=== PATIENT | female | born 1950 | race Caucasian/White ===

== ENCOUNTER → 2022-05-31 | Outpatient (CLI) | payer MEDICARE ==
--- NOTE | 2022-06-01 11:29 | MR ---
EXAMINATION TYPE: MR brain wo/w con DATE OF EXAM: 05/31/2022 COMPARISON: NONE HISTORY: 71-year-old female G24.5, blepharospasm, Right hemifacial spasms. TECHNIQUE: Multiplanar, multisequence images of the brain and brainstem were acquired before and aft er administration of 6.5 mL IV Gadavist. Diffusion weighted imaging is performed. FINDINGS: No evidence for acute infarction, hemorrhage, mass, mass effect, midline shift, herniation, effacemen t of basal cisterns, or extra-axial fluid collection. There is mild age-related cerebral cortical volume loss. No hydrocephalus. 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 Major intracranial flow voids are otherwise intact. T2/FLAIR weighted sequences show mild periventricular white white matter change There is a partially empty sella. Otherwise, midline structures demonstrate normal morphology. The c raniocervical junction is normal. Post contrast images demonstrate no evidence of pathologic enhancement. Dural venous sinuses are pat ent. The patient's globes appear slightly myopic. Slight leftward nasal septal deviation. Mucosal retentio n cyst measuring 1.6 cm along the floor of the left maxillary sinus. Trace mucosal thickening ethmoid air cells. Mastoid air cells are well pneumatized. IMPRESSION: 1. Mild age-related cerebral cortical volume loss and mild changes of chronic small vessel ischemic d isease. No acute intracranial abnormality seen. No enhancing lesions. 2. Some normal variant vascular anatomy including hypoplastic A1 segment right ALEJANDRA and persistent fet al origin right BIT TRIPOLER. 3. Slight leftward nasal septal deviation. Mild chronic ethmoid sinus disease. A 1.6 cm mucosal reten tion cyst along the floor the left maxillary sinus.
== END | disposition home or self-care (01) ==
LOC: RADMRIMAIN 11:44
PROVIDERS: ATTEND Ophthalmology
DX: I67.82 Cerebral ischemia (principal); J34.2 Deviated nasal septum; J32.2 Chronic ethmoidal sinusitis; J34.89 Other specified disorders of nose and nasal sinuses
CPT/HCPCS: 70553; A9585

== ENCOUNTER → 2022-10-23 | Outpatient (CLI) | payer MEDICARE ==
--- NOTE | 2022-10-23 15:47 | BD ---
EXAMINATION TYPE: Axial Bone Density DATE OF EXAM: 10/23/2022 CLINICAL HISTORY: 72 years old Female. ICD-10 CODE: Z78.0 ASYMPTOMATIC MENOPAUSAL STATE Height: 64.5 Weight: 141 FRAX RISK QUESTIONS: Family History (Parent hip fracture): no History of Fracture in Adulthood: no Secondary Osteoporosis: no Rheumatoid Arthritis: no RISK FACTORS HISTORY OF: Family History of Osteoporosis: yes, mother Active: yes Diet low in dairy products/other sources of calcium: no Postmenopausal woman: yes, age 51 Lost more than 2 inches in height since high school: no Frequent falls: no Poor Health: no MEDICATIONS: Additional Medications: no EXAM MEASUREMENTS: Bone mineral densitometry was performed using the [employer] System. Bone mineral density as measured about the Lumbar spine is: ----- L1-L4(G/cm2): 1.043 T Score Values are as follows: ----- L1: -1.7 ----- L2: -2.1 ----- L3: -1.0 ----- L4: 0.1 ----- L1-L4: -1.1 Z Score Values are as follows: ----- L1: 0.1 ----- L2: -0.3 ----- L3: 0.7 ----- L4: 1.9 ----- L1-L4: 0.6 Bone mineral density baseline Bone mineral density about the R hip (g/cm2): 0.679 Bone mineral density about the L hip (g/cm2): 0.666 T Score values are as follows: -----R Neck: -2.5 -----L Neck: -3.1 -----R Total: -2.6 -----L Total: -2.7 Z Score values are as follows: -----R Neck: -0.6 -----L Neck: -1.2 -----R Total: -0.9 -----L Total: -1.0 Bone mineral density baseline FRAX%s: The graph provided illustrates a 20.8% chance for a major osteoporotic fx and a 8.0% chance f or the hips probability for fx in 10 years time. IMPRESSION: Osteoporosis (T Score less than -2.5). There is increased fracture risk and therapy is usually indicated based on age. Re-Screen 1-2 years. NOTE: T-SCORE=SD OF THE YOUNG ADULT MEAN.
--- NOTE | 2022-10-25 08:14 | MM ---
Reason for Exam: Screening (asymptomatic). Last mammogram was performed 15 year(s) and 10 month(s) ago. Patient History: Menarche at age 11. First Full-Term at age 20. Postmenopausal. Patient has history of breast feeding. Risk Values: Jalyn 5 year model risk: 1.6%. Prior Study Comparison: 01/02/2000 Bilateral Screening Mammogram, [facility]. 01/31/2000 Left Special View Mammogram, [facility]. 11/27/2006 Bilateral Diagnostic Mammogram, [facility]. Tissue Density: There are scattered fibroglandular densities. Findings: Analyzed By CAD. Pattern appears symmetrical. Spherical calcification is within the left breast. There is a group of heterogenous calcifications within the 12:00 anterior position left breast. Magnification views are recommended for additional workup. Overall Assessment: Incomplete: need additional imaging evaluation, BI-RAD 0 Management: Diagnostic Mammogram of the left breast. A negative mammogram report should not preclude additional follow up of suspicious palpable abnormalities. Patient should continue monthly self breast exam. A clinical breast exam by your physician is recommended on an annual basis and results should be correlated with mammographic findings. Electronically signed and approved by: Rios Rodriges D.O. Radiologis
== END | disposition home or self-care (01) ==
LOC: RADMAMWWP 13:33
PROVIDERS: ATTEND Family Medicine
DX: Z12.31 Encounter for screening mammogram for malignant neoplasm of breast (principal); M81.0 Age-related osteoporosis without current pathological fracture; Z78.0 Asymptomatic menopausal state
CPT/HCPCS: 77063; 77067; 77080

== ENCOUNTER → 2022-11-06 | Outpatient (CLI) | payer MEDICARE ==
--- NOTE | 2022-11-06 13:19 | MM ---
Reason for Exam: Additional evaluation requested from abnormal screening. Last screening mammogram was performed less than 1 month ago. Patient History: Menarche at age 11. First Full-Term at age 20. Postmenopausal. Patient has history of breast feeding. Risk Values: Jalyn 5 year model risk: 1.6%. NCI Lifetime model risk: 3.9%. Prior Study Comparison: 01/31/2000 Left Special View Mammogram, [facility]. 11/27/2006 Bilateral Diagnostic Mammogram, [facility]. 10/23/2022 Bilateral MG 3D screening mammo w/cad, [facility]. Tissue Density: Left: The breast tissue is heterogeneously dense. This may lower the sensitivity of mammography. Findings: Analyzed By CAD. Persistent left upper quadrant focal asymmetry measuring 23 x 18 mm in the approximately 10.0 cm from the nipple. Overall Assessment: Incomplete: need additional imaging evaluation, BI-RAD 0 Management: Diagnostic Breast Ultrasound of the left breast. A clinical breast exam by your physician is recommended on an annual basis and results should be correlated with mammographic findings. This exam should not preclude additional follow-up of suspicious palpable abnormalities. Results were given to the patient verbally at the time of exam. Electronically signed and approved by: Gene Larios DO
--- NOTE | 2022-11-06 14:11 | USB ---
Reason for Exam: Additional evaluation requested from prior study. Patient History: Menarche at age 11. First Full-Term at age 20. Postmenopausal. Patient has history of breast feeding. Risk Values: Jalyn 5 year model risk: 1.6%. NCI Lifetime model risk: 3.9%. Technique: Method: Targeted. Prior Study Comparison: 01/02/2000 Bilateral Screening Mammogram, [facility]. 01/31/2000 Left Special View Mammogram, [facility]. 11/27/2006 Bilateral Diagnostic Mammogram, [facility]. 10/23/2022 Bilateral MG 3D screening mammo w/cad, [facility]. Findings: The upper outer quadrant of the left breast, the axilla of the left breast and the retroareolar of the left breast were scanned. Imaged: Ultrasound imaging of: Area of concern, retroareolar region and axilla. Left breast 1:00 11 cm from nipple is a irregular shaped hypoechoic lesion measuring 4 x 5 mm. Overall Assessment: Suspicious, BI-RAD 4 Management: Ultrasound Core Biopsy of the left breast. A clinical breast exam by your physician is recommended on an annual basis and results should be correlated with mammographic findings. This exam should not preclude additional follow-up of suspicious palpable abnormalities. Results were given to the patient verbally at the time of exam. Electronically signed and approved by: Gene Larios DO
== END | disposition home or self-care (01) ==
LOC: RADMAMWWP 12:53
PROVIDERS: ATTEND Family Medicine
DX: R92.8 Other abnormal and inconclusive findings on diagnostic imaging of breast (principal); Z78.0 Asymptomatic menopausal state
CPT/HCPCS: 77065; 76642; G0279; 77061

== ENCOUNTER → 2022-11-20 | Day surgery (SDC) | payer MEDICARE ==
--- NOTE | 2022-11-21 09:52 | USB ---
Risk Values: Jalyn 5 year model risk: 1.6%. NCI Lifetime model risk: 3.9%. Findings: The patient presented for prebiopsy ultrasound imaging however the area of concern is not felt to reflect a lesion but rather reflect dense tissue. A mass cannot be confirmed at this time and therefore biopsy was discontinued and six-month follow-up is recommended. This was discussed at length with the patient. IMPRESSION: Probably benign BI-RADS 3. Management: Diagnostic Breast Ultrasound of both breasts in 6 months. Electronically signed and approved by: eLe Shukla M.D. Radiologis
== END ==
LOC: RADUSWWP 10:03
PROVIDERS: ATTEND Surgery
DX: Z53.8 Procedure and treatment not carried out for other reasons (principal); R92.8 Other abnormal and inconclusive findings on diagnostic imaging of breast

== ENCOUNTER → 2022-12-07 | Outpatient (CLI) | payer MEDICARE ==
[~2022-12-07] MED LIST: SODIUM CHLORIDE 0.9% 500 ML 500 ML in EMPTY BAG 1 BAG IV PRN; ZOLEDRONIC ACID 5 MG in SODIUM CHLORIDE 0.9% 100 ML IV NR
[2022-12-07 12:18] VITALS: BP 159/81; PULSE 80; RESP 16; TEMP 97.6
== END ==
LOC: PROCWHC3 11:45
PROVIDERS: ATTEND Family Medicine
DX: M81.0 Age-related osteoporosis without current pathological fracture (principal)
CPT/HCPCS: 96365; J3489

== ENCOUNTER → 2023-05-23 | Outpatient (CLI) | payer MEDICARE ==
--- NOTE | 2023-05-23 10:12 | USB ---
Reason for Exam: Follow-up at short interval from prior study. Patient History: Menarche at age 11. First Full-Term at age 20. Postmenopausal. Patient has history of breast feeding. 11/20/2022, US discontinued breast bx LT on the left side. Risk Values: Jalyn 5 year model risk: 1.6%. NCI Lifetime model risk: 3.9%. Technique: Method: Targeted. Prior Study Comparison: 11/27/2006 Bilateral Diagnostic Mammogram, [facility]. 10/23/2022 Bilateral MG 3D screening mammo w/cad, [facility]. 11/06/2022 Left MG 3D work up w/cad LT, [facility]. Findings: The upper outer quadrant of the left breast, the axilla of the left breast and the retroareolar of the left breast were scanned. Technique utilized:US breast limited LT Image; Ultrasound imaging of: Area of concern, and axilla. Area of concern is stable in appearance and likely represents dense fibroglandular tissue. No evidence for organizing fluid collection or mass. Overall Assessment: Benign, BI-RAD 2 Management: Screening Mammogram of both breasts in 6 months. A clinical breast exam by your physician is recommended on an annual basis and results should be correlated with mammographic findings. This exam should not preclude additional follow-up of suspicious palpable abnormalities. Results were given to the patient verbally at the time of exam. Electronically signed and approved by: Gene Larios DO
== END | disposition home or self-care (01) ==
LOC: RADUSWWP 09:11
PROVIDERS: ATTEND Family Medicine
DX: R92.8 Other abnormal and inconclusive findings on diagnostic imaging of breast (principal); Z78.0 Asymptomatic menopausal state

== ENCOUNTER → 2023-11-25 | Outpatient (CLI) | payer MEDICARE ==
--- NOTE | 2023-11-27 08:09 | MM ---
Reason for Exam: Screening (asymptomatic). Last mammogram was performed 1 year(s) and 1 month(s) ago. Patient History: Menarche at age 11. First Full-Term at age 20. Postmenopausal. Patient has history of breast feeding. 11/20/2022, US discontinued breast bx LT on the left side. Risk Values: Jalyn 5 year model risk: 1.6%. NCI Lifetime model risk: 3.7%. Prior Study Comparison: 11/27/2006 Bilateral Diagnostic Mammogram, [facility]. 10/23/2022 Bilateral MG 3D screening mammo w/cad, [facility]. 11/06/2022 Left MG 3D work up w/cad LT, [facility]. Tissue Density: The breasts are heterogeneously dense, which may obscure small masses. Findings: Analyzed By CAD. Right breast: There is no suspicious group of microcalcifications or new suspicious mass. Benign-appearing calcifications right breast. Left breast: There is no suspicious group of microcalcifications or new suspicious mass. Benign-appearing calcifications right breast. Overall Assessment: Benign, BI-RAD 2 Management: Screening Mammogram of both breasts in [address] [facility] will attempt to contact patient to return for supplemental views and ultrasound if indicated. Patient should continue monthly self-breast exams. A clinical breast exam by your physician is recommended on an annual basis. This exam should not preclude additional follow-up of suspicious palpable abnormalities. Note on Jalyn scores and lifetime risk: 1. A Jalyn score greater than 3% is considered moderate risk. If this is the case, consider specialist referral to assess eligibility for a risk reducing agent. 2. If overall lifetime risk for the development of breast cancer is 20% or higher, the patient may qualify for future screening with alternating mammogram and breast MRI. Electronically signed and approved by: Gene Larios DO
== END | disposition home or self-care (01) ==
LOC: RADMAMWWP 09:19
PROVIDERS: ATTEND Family Medicine
DX: Z12.31 Encounter for screening mammogram for malignant neoplasm of breast (principal); Z78.0 Asymptomatic menopausal state
CPT/HCPCS: 77063; 77067

== ENCOUNTER → 2025-01-28 | Outpatient (CLI) | payer MEDICARE ==
--- NOTE | 2025-01-28 13:43 | MM ---
Reason for Exam: Screening (asymptomatic). Last mammogram was performed 1 year(s) and 3 month(s) ago. Patient History: Menarche at age 11. First Full-Term at age 20. Postmenopausal. Patient has history of breast feeding. 11/20/2022, US discontinued breast bx LT on the left side. Risk Values: Jalyn 5 year model risk: 1.6%. NCI Lifetime model risk: 3.4%. Prior Study Comparison: 10/23/2022 Bilateral MG 3D screening mammo w/cad, [facility]. 11/06/2022 Left MG 3D work up w/cad LT, [facility]. 11/25/2023 Bilateral MG 3D screening mammo w/cad, [facility]. Tissue Density: The breasts are heterogeneously dense, which may obscure small masses. Findings: Analyzed By CAD. Some coarse secretory calcifications are again noted a tubular lateral left breast. Asymmetric density in the left axillary tail is unchanged. There is no suspicious group of microcalcifications or new suspicious mass in either breast. Overall Assessment: Benign, BI-RAD 2 Management: Screening Mammogram of both breasts in 1 year. Patient should continue monthly self-breast exams. A clinical breast exam by your physician is recommended on an annual basis. This exam should not preclude additional follow-up of suspicious palpable abnormalities. Note on Jalyn scores and lifetime risk: 1. A Jalyn score greater than 3% is considered moderate risk. If this is the case, consider specialist referral to assess eligibility for a risk reducing agent. 2. If overall lifetime risk for the development of breast cancer is 20% or higher, the patient may qualify for future screening with alternating mammogram and breast MRI. [facility], , 01/28/2025 1:31 PM. Electronically signed and approved by: Gaby Herrera M.D. Radiologist
--- NOTE | 2025-01-28 15:16 | BD ---
EXAMINATION TYPE: Axial Bone Density DATE OF EXAM: 01/28/2025 CLINICAL HISTORY: 74 years old Female. ICD-10 CODE: Z78.0 POST MENOPAUSAL , Additional History: Height: 65 Weight: 142.7 FRAX RISK QUESTIONS: Alcohol (3 or more units per day): no Family History (Parent hip fracture): no Glucocorticoids (More than 3mos): no (Ex: prednisone, prednisolone, methylprednisolone, dexamethasone, and hydrocortisone). History of Fracture in Adulthood: yes Secondary Osteoporosis: 1. Type 1 Diabetes: no 2. Hyperthyroidism: no 3. Menopause before 45: no 4. Malnutrition: no 5. Chronic liver disease: no Rheumatoid Arthritis: no Current Tobacco Use: no RISK FACTORS HISTORY OF: History of Wrist Fracture: right When: 2 years ago Surgery to Spine/Hip(right/left)/Wrist (right/left): no EXAM MEASUREMENTS: Bone mineral densitometry was performed using the [employer] System. Bone mineral density as measured about the Lumbar spine is: ----- L1-L4(G/cm2): 1.012 T Score Values are as follows: ----- L1: -1.0 ----- L2: -2.1 ----- L3: -2.0 ----- L4: -0.6 ----- L1-L4: -1.4 Z Score Values are as follows: ----- L1: 0.8 ----- L2: -0.3 ----- L3: -0.3 ----- L4: 1.1 ----- L1-L4: 0.4 Bone mineral density has: decreased -3.0 % since study of: 10.20.2022 Bone mineral density about the R hip (g/cm2): 0.716 Bone mineral density about the L hip (g/cm2): 0.737 T Score values are as follows: -----R Neck: -2.3 -----L Neck: -2.2 -----R Total: -2.3 -----L Total: -2.1 Z Score values are as follows: -----R Neck: -0.3 -----L Neck: -0.2 -----R Total: -0.5 -----L Total: -0.4 Bone mineral density has: increased 8.0 % since study of: 3.25.2012 FRAX%s: The graph provided illustrates a 22.5 % chance for a major osteoporotic fx and a 6.4% chance for the hips probability for fx in 10 years time. IMPRESSION: Osteopenia (T Score between -2.5 and -1). There is slightly increased risk of fracture and the patient may be considered for treatment. Re-Screen 2-5 years. NOTE: T-SCORE=SD OF THE YOUNG ADULT MEAN. [facility], , 01/28/2025 3:13 PM
== END | disposition home or self-care (01) ==
LOC: RADMAMWWP 13:08
PROVIDERS: ATTEND Family Medicine
DX: Z12.31 Encounter for screening mammogram for malignant neoplasm of breast (principal); R92.333 Mammographic heterogeneous density, bilateral breasts; M85.89 Other specified disorders of bone density and structure, multiple sites; Z78.0 Asymptomatic menopausal state
CPT/HCPCS: 77063; 77067; 77080